=== PATIENT | female | born 1985 | race Caucasian/White ===

== ENCOUNTER 2019-04-02 09:09 | Emergency (ER) | payer BC ==
[2019-04-02] MEDS ORDERED: FENTANYL CITR 100 MCG/2 ML ONE (10:27)
[2019-04-02 10:43] LABS: Urine Blood NEGATIVE (NEG); Urine Glucose NEGATIVE (NEG); Urine Protein NEGATIVE (NEG)
[2019-04-02 10:59] LABS: Urine Amorphous Sediment 2+ /HPF (NONE SEEN); Urine Bacteria 20-50 /HPF (<20); Urine Culture Reflex Order NOT NEEDED; Urine Mucus MOD /HPF (NONE SEEN); Urine RBC <5 /HPF (NONE SEEN)
[2019-04-02 11:00] LABS: Absolute Lymphocytes (CBC) 2.4 K/uL (0.7-4.9); Basophils % 0.5 % (0-1.3); Hematocrit 39.5 % (36.0-45.0); Lymphocytes % 24.4 % (15.3-44.8); MPV 8.7 fL (7.6-11.3)
[2019-04-02 11:02] LABS: BUN Blood Urea Nitrogen 10 mg/dL (7-18); Bicarbonate 30 mmol/L (21-32); Glucose Level 85 mg/dL (74-106); Sodium Level 142 mmol/L (136-145)
--- NOTE | 2019-04-02 11:04 | RAD REPORT ---
EXAM DESCRIPTION: CT - Head Brain Wo Cont - 04/02/2019 10:56 am CLINICAL HISTORY: Dizziness;Headache Headache, drowsiness COMPARISON: No comparisons TECHNIQUE: All CT scans are performed using dose optimization technique as appropriate and may inclu de automated exposure control or mA/KV adjustment according to patient size. FINDINGS: No intracranial hemorrhage, hydrocephalus or extra-axial fluid collection.No areas of brai n edema or evidence of midline shift. The paranasal sinuses and mastoids are clear. The calvarium is intact. IMPRESSION: No acute intracranial abnormality.
--- NOTE | 2019-04-02 12:09 | RAD REPORT ---
EXAM DESCRIPTION: CT - Head angio - 04/02/2019 11:53 am CLINICAL HISTORY: DIZZINESS Headache, drowsiness, syncope COMPARISON: DIGITAL SCR MAMMO BILAT W CAD dated 08/16/2016DIGITAL SCR MAMMO BILAT W CAD dated 08/16/19 17; MAMMO DIGITAL SCR BILAT W CAD dated 02/25/2015Head Brain Wo Cont dated 04/02/2019 TECHNIQUE: CT angiography of the head was performed with MIPs. All CT scans are performed using dose optimization technique as appropriate and may include automated exposure control or mA/KV adjustment according to patient size. FINDINGS: No evidence of aneurysm is detected. No flow-limiting stenosis or vascular malformation id entified. Antegrade flow is seen in the vertebral arteries. The vertebral arteries are codominant. The visualized dural venous sinuses are patent. Moderate mucosal thickening of the maxillary antra seen. IMPRESSION: No significant flow abnormality is detected.
--- NOTE | 2019-04-02 12:10 | RAD REPORT ---
EXAM DESCRIPTION: CT - Neck Angio - 04/02/2019 11:53 am CLINICAL HISTORY: dizziness Headache, drowsiness, syncope COMPARISON: No comparisons TECHNIQUE: CT angiography of the neck vessels was performed with MIPs. All CT scans are performed using dose optimization technique as appropriate and may include automated exposure control or mA/KV adjustment according to patient size. FINDINGS: A left aortic arch is identified with normal three vessel configuration of the great vesse ls. No significant flow abnormality is seen of the common carotid bilaterally. No significant stenosis is identified involving the cervical segments of both internal carotid arteri es. Normal flow is seen within both vertebral arteries. Moderate mucosal thickening of the maxillary antra noted. IMPRESSION: No significant flow abnormality of the neck vessels is identified.
--- NOTE | 2019-04-02 12:20 | EDPHYS ---
Physician Documentation [facility] Name: Arabella Rodriguez Age: 33 yrs Sex: Female : 1985 Arrival Date: 04/02/2019 Time: 09:09 Bed 6 Private MD: ED Physician Vivek Abbasi HPI: 04/02 12:21 This 33 yrs old Female presents to ER via Ambulatory with complaints of snw Headache, Dizziness. 10:56 The patient complains of pain to the left occipital area, left base of the skull, right snw occipital area and right base of the skull. The patient describes the headache as unrelenting. Onset: The symptoms/episode began/occurred gradually, 4 day(s) ago, and became persistent. Associated signs and symptoms: Pertinent positives: dizziness, nausea. Severity of symptoms: At its worst the pain was severe, in the emergency department the pain has improved. Headache History: Denies prior headaches. The symptoms are alleviated by nothing. the symptoms are aggravated by pt pressed occipital pressure points to help headache and developed severe vertigo, nausea, vomiting, near syncope. The patient has not experienced similar symptoms in the past. The patient has not recently seen a physician. 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 - Social history:: Smoking status: Patient/guardian denies using tobacco. - Ebola Screening: : Patient denies exposure to infectious person Patient denies travel to an Ebola-affected area in the 21 days before illness onset. ROS: 10:55 Constitutional: Negative for fever, chills, and weight loss, Eyes: Negative for injury, snw pain, redness, and discharge, ENT: Negative for injury, pain, and discharge, Neck: Negative for injury, pain, and swelling, Cardiovascular: Negative for chest pain, palpitations, and edema, Respiratory: Negative for shortness of breath, cough, wheezing, and pleuritic chest pain. 10:55 Back: Negative for injury and pain, : Negative for injury, bleeding, discharge, and swelling, MS/Extremity: Negative for injury and deformity, Skin: Negative for injury, rash, and discoloration. 10:55 Psych: Negative for depression, anxiety, suicide ideation, homicidal ideation, and hallucinations. 10:55 Abdomen/GI: Positive for nausea. 10:55 Neuro: Positive for dizziness, headache. Exam: 10:55 Constitutional: This is a well developed, well nourished patient who is awake, alert, snw and in no acute distress. Head/Face: Normocephalic, atraumatic. Eyes: Pupils equal round and reactive to light, extra-ocular motions intact. Lids and lashes normal. Conjunctiva and sclera are non-icteric and not injected. Cornea within normal limits. Periorbital areas with no swelling, redness, or edema. ENT: Nares patent. No nasal discharge, no septal abnormalities noted. Tympanic membranes are normal and external auditory canals are clear. Oropharynx with no redness, swelling, or masses, exudates, or evidence of obstruction, uvula midline. Mucous membranes moist. Neck: Trachea midline, no thyromegaly or masses palpated, and no cervical lymphadenopathy. Supple, full range of motion without nuchal rigidity, or vertebral point tenderness. No Meningismus. Chest/axilla: Normal chest wall appearance and motion. Nontender with no deformity. No lesions are appreciated. Cardiovascular: Regular rate and rhythm with a normal S1 and S2. No gallops, murmurs, or rubs. Normal PMI, no JVD. No pulse deficits. Respiratory: Lungs have equal breath sounds bilaterally, clear to auscultation and percussion. No rales, rhonchi or wheezes noted. No increased work of breathing, no retractions or nasal flaring. Abdomen/GI: Soft, non-tender, with normal bowel sounds. No distension or tympany. No guarding or rebound. No evidence of tenderness throughout. Back: No spinal tenderness. No costovertebral tenderness. Full range of motion. Skin: Warm, dry with normal turgor. Normal color with no rashes, no lesions, and no evidence of cellulitis. MS/ Extremity: Pulses equal, no cyanosis. Neurovascular intact. Full, normal range of motion. Neuro: Awake and alert, GCS 15, oriented to person, place, time, and situation. Cranial nerves II-XII grossly intact. Motor strength 5/5 in all extremities. Sensory grossly intact. Cerebellar exam normal. Normal gait. Psych: Awake, alert, with orientation to person, place and time. Behavior, mood, and affect are within normal limits. Vital Signs: 09:33 BP 155 / 110; Pulse 75; Resp 16; Temp 97.8(TE); Pulse Ox 98% on R/A; Weight 96.16 kg; ss Height 5 ft. 2 in. (157.48 cm); Pain 7/10; 10:22 BP 144 / 96; Pulse 88; Resp 16; Pulse Ox 98% ; hb 11:30 BP 136 / 86; Pulse 85; Resp 15; Pulse Ox 100% on R/A; hb 09:33 Body Mass Index 38.77 (96.16 kg, 157.48 cm) ss [place] Coma Score: 12:20 Eye Response: spontaneous(4). Verbal Response: oriented(5). Motor Response: obeys snw commands(6). Total: 15. MDM: 10:28 Patient medically screened. snw 12:20 Data reviewed: vital signs, nurses notes. Counseling: I had a detailed discussion with snw the patient and/or guardian regarding: the historical points, exam findings, and any diagnostic results supporting the discharge/admit diagnosis, the presence of at least one elevated blood pressure reading (>120/80) during this emergency department visit, lab results, radiology results, the need for outpatient follow up, to return to the emergency department if symptoms worsen or persist or if there are any questions or concerns that arise at home. Special discussion: I have referred the patient to see his PCP for further evaluation of high blood pressure. Based on the history and exam findings, there is no indication for further emergent testing or inpatient evaluation. I discussed with the patient/guardian the need to see the neurologist for further evaluation of the symptoms. I discussed with the patient/guardian the need to see the primary care provider for further evaluation of the symptoms. 04/02 10:12 Order name: Urine Culture sn 04/02 10:12 Order name: Urine Microscopic Only sn 04/02 10:13 Order name: Urine Culture EDTN 04/02 10:13 Order name: Urine Microscopic Only; Complete Time: 11:17 EDMS 04/02 10:26 Order name: CBC with Diff; Complete Time: 11:17 snw 04/02 10:26 Order name: Chem 7; Complete Time: 11:17 snw 04/02 10:25 Order name: CT Head Brain wo Cont; Complete Time: 11:17 snw 04/02 10:27 Order name: Urine Dipstick--Ancillary (enter results); Complete Time: 10:52 gm 04/02 10:27 Order name: Urine --Ancillary (enter results); Complete Time: 10:52 gm 04/02 11:20 Order name: CT Head Angio; Complete Time: 12:15 snw 04/02 11:20 Order name: CT Neck Angio; Complete Time: 12:15 snw 04/02 10:12 Order name: Urine Test (obtain specimen); Complete Time: 10:21 snw 04/02 10:12 Order name: Urine Dipstick-Ancillary (obtain specimen); Complete Time: 10:21 snw 04/02 10:13 Order name: Recheck B/P; Complete Time: 10:21 snw Administered Medications: 10:37 Drug: fentaNYL (PF) 25 mcg {Note: RASS 0.} Route: IVP; Site: left antecubital; hb 11:11 Follow up: Response: No adverse reaction hb 12:43 Drug: TORadol 30 mg Route: IVP; Site: left antecubital; hb 12:44 Follow up: Response: Medication administered at discharge. hb 12:44 Drug: Phenergan 25 mg Route: PO; hb 12:44 Follow up: Response: Medication administered at discharge. hb Disposition: 17:26 Co-signature as Attending Physician, Vivek Abbasi MD. gs Disposition: 04/02/19 12:19 Discharged to Home. Impression: Headache. - Condition is Stable. - Discharge Instructions: General Headache Without Cause, Hypertension, Rehydration, Adult, Form - Blood Pressure Record Sheet. - Prescriptions for orphenadrine citrate 100 mg Oral Tablet Sustained Release - take 1 tablet by ORAL route 2 times per day As needed; 20 tablet. promethazine 25 mg Oral Tablet - take 1 tablet by ORAL route every 6 hours As needed; 20 tablet. - Work release form, Medication Reconciliation Form, Thank You Letter, Antibiotic Education, Prescription Opioid Use form. - Follow up: Private Physician; When: 2 - 3 days; Reason: Recheck today's complaints, Continuance of care, Re-evaluation by your physician. Follow up: Emergency Department; When: As needed; Reason: Worsening of condition. Signatures: Dispatcher [employer] EDMS Tiesha Posey, RIA-C INVASIVE MANAGER-Csnw Adwoa Garcia RN RN Mckenzie Khan RN RN Vivek Abbasi MD MD Corrections: (The following items were deleted from the chart) 12:45 12:19 04/02/2019 12:19 Discharged to Home. Impression: Headache. Condition is Stable. hb Forms are Medication Reconciliation Form, Thank You Letter, Antibiotic Education, Prescription Opioid Use. Follow up: Private Physician; When: 2 - 3 days; Reason: Recheck today's complaints, Continuance of care, Re-evaluation by your physician. Follow up: Emergency Department; When: As needed; Reason: Worsening of condition. snw
--- NOTE | 2019-04-02 12:20 | ER ---
Nurse's Notes [facility] Name: Arabella Rodriguez Age: 33 yrs Sex: Female : 1985 Arrival Date: 04/02/2019 Time: 09:09 Bed 6 Private MD: Diagnosis: Headache Presentation: 04/02 09:34 Presenting complaint: Patient states: Patient reports she had a neck sprain 1 week ago ss and after she saw a chiropractor and had an adjustment she has been having headaches and fatigue since then that does not seem to be improving. Transition of care: patient was not received from another setting of care. Onset of symptoms was March 26, 2019. Risk Assessment: Do you want to hurt yourself or someone else? Patient reports no desire to harm self or others. Initial Sepsis Screen: Does the patient meet any 2 criteria? No. Patient's initial sepsis screen is negative. Does the patient have a suspected source of infection? No. Patient's initial sepsis screen is negative. Care prior to arrival: None. 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 - Social history:: Smoking status: Patient/guardian denies using tobacco. - Ebola Screening: : Patient denies exposure to infectious person Patient denies travel to an Ebola-affected area in the 21 days before illness onset. Screenin:37 Abuse screen: Denies threats or abuse. Denies injuries from another. Nutritional hb screening: No deficits noted. Tuberculosis screening: No symptoms or risk factors identified. Fall Risk None identified. Assessment: 10:37 General: Appears in no apparent distress. Behavior is calm, cooperative. Pain: Pain hb currently is 7 out of 10 on a pain scale. Neuro: Level of Consciousness is awake, alert, obeys commands, Oriented to person, place, time, situation, Reports headache. Cardiovascular: Capillary refill < 3 seconds Patient's skin is warm and dry. Respiratory: Airway is patent Respiratory effort is even, unlabored, Respiratory pattern is regular, symmetrical. GI: No signs and/or symptoms were reported involving the gastrointestinal system. : No signs and/or symptoms were reported regarding the genitourinary system. EENT: No signs and/or symptoms were reported regarding the EENT system. Derm: Skin is intact, is healthy with good turgor. Musculoskeletal: No signs and/or symptoms reported regarding the musculoskeletal system. 11:30 Reassessment: Patient appears in no apparent distress at this time. Patient and/or hb family updated on plan of care and expected duration. Pain level reassessed. Patient is alert, oriented x 3, equal unlabored respirations, skin warm/dry/pink. 12:30 Reassessment: Patient appears in no apparent distress at this time. Patient and/or hb family updated on plan of care and expected duration. Pain level reassessed. Patient is alert, oriented x 3, equal unlabored respirations, skin warm/dry/pink. Vital Signs: 09:33 BP 155 / 110; Pulse 75; Resp 16; Temp 97.8(TE); Pulse Ox 98% on R/A; Weight 96.16 kg; ss Height 5 ft. 2 in. (157.48 cm); Pain 7/10; 10:22 BP 144 / 96; Pulse 88; Resp 16; Pulse Ox 98% ; hb 11:30 BP 136 / 86; Pulse 85; Resp 15; Pulse Ox 100% on R/A; hb 09:33 Body Mass Index 38.77 (96.16 kg, 157.48 cm) ss [place] Coma Score: 12:20 Eye Response: spontaneous(4). Verbal Response: oriented(5). Motor Response: obeys snw commands(6). Total: 15. ED Course: 09:09 Patient arrived in ED. as 09:33 Arm band placed on right wrist. ss 09:35 Triage completed. ss 09:51 Mckenzie Khan, SARA is Primary Nurse. hb 10:08 Tiesha Posey FNP-C is PHCP. snw 10:08 Vivek Abbasi MD is Attending Physician. snw 10:22 Urine collected: clean catch specimen, cloudy. dh3 10:37 Patient has correct armband on for positive identification. Bed in low position. Call hb light in reach. Side rails up X 1. 10:37 Urine Culture Sent. hb 10:37 Urine Microscopic Only Sent. hb 10:37 Inserted saline lock: 20 gauge in left antecubital area, using aseptic technique. Blood hb collected. 10:59 CT Head Brain wo Cont In Process Unspecified. EDMS 11:54 CT Head Angio In Process Unspecified. EDMS 11:54 CT Neck Angio In Process Unspecified. EDMS 12:44 No provider procedures requiring assistance completed. IV discontinued, intact, hb bleeding controlled, No redness/swelling at site. Pressure dressing applied. Administered Medications: 10:37 Drug: fentaNYL (PF) 25 mcg {Note: RASS 0.} Route: IVP; Site: left antecubital; hb 11:11 Follow up: Response: No adverse reaction hb 12:43 Drug: TORadol 30 mg Route: IVP; Site: left antecubital; hb 12:44 Follow up: Response: Medication administered at discharge. hb 12:44 Drug: Phenergan 25 mg Route: PO; hb 12:44 Follow up: Response: Medication administered at discharge. hb Outcome: 12:19 Discharge ordered by MD. snw 12:44 Discharged to home ambulatory. hb 12:44 Condition: stable 12:44 Discharge instructions given to patient, Instructed on discharge instructions, follow up and referral plans. medication usage, Demonstrated understanding of instructions, follow-up care, medications, Prescriptions given X 2. 12:45 Patient left the ED. hb Signatures: Dispatcher [employer] EDNJ Tiesha Posey, RIA-C CERAMICS TEACHER-Anh Moise Shelby, RN RN Mckenzie Khan RN RN [facility]
[2019-04-02] MEDS ORDERED: KETOROLAC 30 MG/ML INJ ONE (12:35)
[2019-04-02] MEDS ORDERED: PROMETHAZINE 25 MG TABLET ONE (12:35)
[2019-04-02 12:52] VITALS: TEMP 97.8
[2019-04-02 12:55] VITALS: BP 136/86; O2SAT 100
== END 2019-04-02 12:45 | disposition home or self-care (01) ==
LOC: ER 09:09
DX: R51 Headache (principal)
CPT/HCPCS: 87088; 85025; 87086; 80048; 36415; 81025; 70450; 70496; 70498; 96375; 96374; 99284; Q9967; J3010; 81003; 81015; Q0169